=== PATIENT | male | born 1980 | race Caucasian/White ===

== ENCOUNTER 2019-10-12 11:17 | Emergency (ER) | payer BC ==
[2019-10-12] MEDS ORDERED: Adenosine 12 MG/4 ML SDV ONE (11:34)
[2019-10-12] MEDS ORDERED: Adenosine 6 MG/2 ML SDV ONE (11:34)
[2019-10-12] MEDS ORDERED: Sodium Chloride 0.9% 10 ML Syringe FLUSH PRN (11:39)
[2019-10-12] MEDS ORDERED: Adenosine 6 MG/2 ML SDV IVPUSH ONE (11:40)
[2019-10-12] MEDS ORDERED: Sodium Chloride 0.9% 1,000 ML IV SCH (11:45)
--- NOTE | 2019-10-12 12:15 | EDM.PDOC ---
ED HPI GENERAL MEDICAL PROBLEM - General Chief Complaint: Cardiovascular Problem Stated Complaint: RAPID HEART RATE, BURNING IN L ARM SOME CHEST PAIN Time Seen by Provider: 10/12/19 11:29 Source of Information: Reports: Patient History Limitations: Reports: No Limitations - History of Present Illness INITIAL COMMENTS - FREE TEXT/NARRATIVE: The patient presents with palpitations. He also has some burning down his left arm. He also has a little chest pressure. He says he had this happen a few times before. They offered to do ablation but it only happened a couple of times. He did not do anything abnormal the past couple of days. He has not been ill. He has no fever, chills, cough, congestion, runny nose, or shortness of breath. He has no abdominal pain, nausea or vomiting. He has no swelling or pain in his legs. Onset: Sudden Duration: Hour(s): Location: Reports: Chest Quality: Reports: Pressure Severity: Mild Improves with: Reports: None Worsens with: Reports: None Associated Symptoms: Reports: Chest Pain. Denies: Cough, Fever/Chills, Headaches, Nausea/Vomiting, Shortness of Breath - Related Data Allergies Allergy/AdvReac Type Severity Reaction Status Date / Time No Known Allergies Allergy Verified 10/12/19 11:38 Home Meds: Home Meds . [No Known Home Meds] 10/12/19 [History] Past Medical History Cardiovascular History: Reports: Arrhythmia Other Cardiovascular History: last episode about 2 years ago Social & Family History - Family History Family Medical History: Noncontributory - Tobacco Use Smoking Status *Q: Current Every Day Smoker Years of Tobacco use: 15 Packs/Tins Daily: 0.3 - Caffeine Use Caffeine Use: Reports: Tea - Recreational Drug Use Recreational Drug Use: No ED ROS GENERAL - Review of Systems Review Of Systems: See Below Constitutional: Reports: No Symptoms HEENT: Reports: No Symptoms Respiratory: Reports: No Symptoms Cardiovascular: Reports: Chest Pain, Palpitations Endocrine: Reports: No Symptoms GI/Abdominal: Reports: No Symptoms : Reports: No Symptoms ED EXAM, GENERAL - Physical Exam Exam: See Below Exam Limited By: No Limitations General Appearance: Alert, No Apparent Distress Ears: Normal External Exam Nose: Normal Inspection Head: Atraumatic, Normocephalic Neck: Normal Inspection Respiratory/Chest: No Respiratory Distress, Lungs Clear, Normal Breath Sounds Cardiovascular: No Edema, No Murmur, Tachycardia GI/Abdominal: Soft, Non-Tender, No Organomegaly, No Mass Back Exam: Normal Inspection Extremities: Normal Inspection Neurological: Alert, Oriented, No Motor/Sensory Deficits EKG INTERPRETATION EKG Date: 10/12/19 Time: 11:36 Rhythm: Other (Sinus tachycardia) Rate (Beats/Min): 107 [place]: Normal P-Wave: Present QRS: Normal ST-T: Normal QT: Normal Course - Vital Signs Last Recorded V/S: Last Vital Signs Temp 97.8 F 10/12/19 11:30 Pulse 193 H 10/12/19 11:30 Resp 20 10/12/19 11:30 BP 144/104 H 10/12/19 11:30 Pulse Ox 96 10/12/19 11:30 - Orders/Labs/Meds Orders: Active Orders 24 hr Category Date Time Status Cardiac Monitoring [RC] . DIRECTED Care 10/12/19 11:39 Active EKG Documentation Completion [RC] STAT Care 10/12/19 11:39 Active Peripheral IV Care [RC] . DIRECTED Care 10/12/19 11:39 Active Chest 2V [CR] Stat Exams 10/12/19 11:39 Taken Sodium Chloride 0.9% [Normal Saline] 1,000 ml Med 10/12/19 11:45 Active IV .BOLUS Sodium Chloride 0.9% [Saline Flush] Med 10/12/19 11:39 Active 10 ml FLUSH ASDIRECTED PRN Peripheral IV Insertion Adult [OM.PC] Stat Oth 10/12/19 11:39 Ordered Medication Orders Sodium Chloride (Normal Saline) 1,000 mls @ 1,000 mls/hr IV .BOLUS DILEEP Last Admin: 10/12/19 11:51 Dose: 1,000 mls/hr Sodium Chloride (Saline Flush) 10 ml FLUSH ASDIRECTED PRN PRN Reason: Keep Vein Open Last Admin: 10/12/19 11:52 Dose: 10 ml Labs: Laboratory Tests 10/12/19 10/12/19 10/12/19 Range/Units 11:35 11:35 11:35 WBC 11.81 H (4.23-9.07) K/mm3 RBC 5.72 (4.63-6.08) M/mm3 Hgb 17.3 (13.7-17.5) gm/dl Hct 51.1 H (40.1-51.0) % MCV 89.3 (79.0-92.2) fl MCH 30.2 (25.7-32.2) pg MCHC 33.9 (32.2-35.5) g/dl RDW Std Deviation 45.1 H (35.1-43.9) fL Plt Count 259 (163-337) K/mm3 MPV 10.6 (9.4-12.3) fl Neut % (Auto) 60.6 (34.0-67.9) % Lymph % (Auto) 26.0 (21.8-53.1) % [place] % (Auto) 10.9 (5.3-12.2) % Eos % (Auto) 1.4 (0.8-7.0) Baso % (Auto) 0.8 (0.1-1.2) % Neut # (Auto) 7.15 H (1.78-5.38) K/mm3 Lymph # (Auto) 3.07 (1.32-3.57) K/mm3 [place] # (Auto) 1.29 H (0.30-0.82) K/mm3 Eos # (Auto) 0.17 (0.04-0.54) K/mm3 Baso # (Auto) 0.10 H (0.01-0.08) K/mm3 Manual Slide Review Normal smear Sodium 142 (136-145) mEq/L Potassium 4.1 (3.5-5.1) mEq/L Chloride 105 (98-107) mEq/L Carbon Dioxide 28 (21-32) mEq/L Anion Gap 13.1 (5-15) BUN 14 (7-18) mg/dL Creatinine 1.3 (0.7-1.3) mg/dL Est Cr Clr Drug Dosing 86.22 mL/min Estimated GFR (MDRD) > 60 (>60) mL/min BUN/Creatinine Ratio 10.8 L (14-18) Glucose 203 H (74-106) mg/dL Calcium 8.8 (8.5-10.1) mg/dL Total Bilirubin 0.6 (0.2-1.0) mg/dL AST 57 H (15-37) U/L ALT 137 H (16-63) U/L Alkaline Phosphatase 115 (46-116) U/L Troponin I < 0.017 (0.00-0.056) ng/mL Total Protein 7.6 (6.4-8.2) g/dl Albumin 3.8 (3.4-5.0) g/dl Globulin 3.8 gm/dL Albumin/Globulin Ratio 1.0 (1-2) TSH 3rd Generation 1.807 (0.358-3.74) uIU/mL Meds: Medications Generic Name Dose Route Start Last Admin Trade Name Freq PRN Reason Stop Dose Admin Sodium Chloride 1,000 mls @ 1,000 mls/hr 10/12/19 11:45 10/12/19 11:51 Normal Saline IV 1,000 mls/hr .BOLUS DILEEP Administration Sodium Chloride 10 ml 10/12/19 11:39 10/12/19 11:52 Saline Flush FLUSH 10 ml ASDIRECTED PRN Administration Keep Vein Open Discontinued Medications Generic Name Dose Route Start Last Admin Trade Name Freq PRN Reason Stop Dose Admin Adenosine Confirm 10/12/19 11:34 10/12/19 11:43 Adenocard Administered 10/12/19 11:35 Not Given Dose 6 mg .ROUTE .STK-MED ONE Adenosine Confirm 10/12/19 11:34 10/12/19 11:43 Adenocard Administered 10/12/19 11:35 Not Given Dose 12 mg .ROUTE .STK-MED ONE Adenosine 6 mg 10/12/19 11:40 10/12/19 11:36 Adenocard IVPUSH 10/12/19 11:41 6 mg NOW ONE Administration - Re-Assessments/Exams Free Text/Narrative Re-Assessment/Exam: 10/12/19 12:44 The monitor showed he was in SVT at a rate in the 190s. I tried vagal maneuvers but that did not help. He did try them at home also. I then ordered an IV NS 1L bolus, adenosine 6mg IV, labs, CXR and EKG. The adenosine did convert him. His EKG shows a NSR with no acute changes. His CXR looks good. His CBC and CMP look good. His troponin and TSH are normal. Departure - Departure Time of Disposition: 12:50 Disposition: Home, Self-Care 01 Condition: Good Clinical Impression: Paroxysmal supraventricular tachycardia Referrals: PCP,None [Primary Care Provider] - Manoj Eugene MD [Physician] - 1 Week Forms: ED Department Discharge Additional Instructions: Drink plenty of fluids. Follow up with Dr Eugene within a week or two. Please return if you are worse. - My Orders Last 24 Hours: My Active Orders 10/12/19 11:39 Cardiac Monitoring [RC] . DIRECTED EKG Documentation Completion [RC] STAT Peripheral IV Care [RC] . DIRECTED Chest 2V [CR] Stat Sodium Chloride 0.9% [Saline Flush] 10 ml FLUSH ASDIRECTED PRN Peripheral IV Insertion Adult [OM.PC] Stat 10/12/19 11:45 Sodium Chloride 0.9% [Normal Saline] 1,000 ml IV .BOLUS - Assessment/Plan Last 24 Hours: My Active Orders 10/12/19 11:39 Cardiac Monitoring [RC] . DIRECTED EKG Documentation Completion [RC] STAT Peripheral IV Care [RC] . DIRECTED Chest 2V [CR] Stat Sodium Chloride 0.9% [Saline Flush] 10 ml FLUSH ASDIRECTED PRN Peripheral IV Insertion Adult [OM.PC] Stat 10/12/19 11:45 Sodium Chloride 0.9% [Normal Saline] 1,000 ml IV .BOLUS
--- NOTE | 2019-10-12 14:01 | CR ---
Chest: Two views of the chest were obtained. Comparison: No prior chest x-ray. Heart size and mediastinum are normal. Lungs are clear. Bony structures are unremarkable. Impression: 1. Nothing acute is seen on two-view chest x-ray. Diagnostic code #1
== END 2019-10-12 13:04 | disposition home or self-care (01) ==
LOC: JD.ED 11:17
DX: I47.1 Supraventricular tachycardia (principal); F17.210 Nicotine dependence, cigarettes, uncomplicated
CPT/HCPCS: 36415; 71046; 80053; 84443; 84484; 85025; 93005; 96361; 96374; 99285; J0153; J7040; 93010; 99284

== ENCOUNTER 2019-12-25 15:28 | Emergency (ER) | payer BC, MEDICAID ==
[2019-12-25] MEDS ORDERED: Adenosine 6 MG/2 ML SDV IVPUSH ONE ×2 (15:43→15:44)
[2019-12-25] MEDS ORDERED: Sodium Chloride 0.9% 1,000 ML IV ONE ×2 (15:43→15:55)
[2019-12-25] MEDS ORDERED: Sodium Chloride 0.9% 1,000 ML ONE (15:45)
[2019-12-25] MEDS ORDERED: Metoclopramide 10 MG/2 ML SDV IVPUSH ONE (15:56)
[2019-12-25] MEDS ORDERED: HYDROmorphone 1 MG/ML Syringe IVPUSH ONE ×2 (15:56→17:57)
--- NOTE | 2019-12-25 16:11 | EDM.PDOC ---
ED HPI GENERAL MEDICAL PROBLEM - General Chief Complaint: Back Pain or Injury Stated Complaint: BACK PAIN Time Seen by Provider: 12/25/19 15:34 Source of Information: Reports: Patient History Limitations: Reports: No Limitations - History of Present Illness INITIAL COMMENTS - FREE TEXT/NARRATIVE: 39-year-old male presents to the ED primarily because of an increase in low back pain with loss of bladder control earlier this morning. He states he is known to have severe degenerative disc disease from lumbar 2 to lumbar 5. He has increased weakness in his left leg with frequent stumbling due to mild left foot drop. He doesn't take anything for the pain is nothing really helps. He had steroid injections in his back done in [place] a couple of months ago with no real improvement. He is a large fellow weighs about 330 pounds. The nurses identify that his heart was racing in the 140s when they did his vital signs. Patient has a history of recurrent SVT he estimates at least 5 or 6 times in the past has required Adenocard. He isn't aware of any palpitations in his chest. He is aware of some mild sweats and lightheadedness. Doesn't really feel short of breath and has no chest pain. He rarely drinks alcohol. takes no medications at present and does not smoke cigarettes. Onset: Today (Today's the first time that he's ever lost control of his bladder. ) Onset Date: 12/25/19 (Jaja low back pain for greater than 5 years) Duration: Chronic, Getting Worse Location: Reports: Back (Chronic low back pain with lower extremity weakness worse on the left than on the right.) Quality: Reports: Ache, Throbbing Severity: Severe (8 out of 10) Improves with: Reports: Rest Worsens with: Reports: Movement Context: Reports: Other (Chronic low back pain just getting worse.). Denies: Activity, Exercise (Particularly standing and walking), Lifting, Sick Contact, Trauma Associated Symptoms: Reports: Diaphoresis, Loss of Appetite, Malaise, Weakness ( Lightheadedness and dizziness is in both lower extremities worse in the left leg and on the right.), Other. Denies: Confusion, Chest Pain, Cough, cough w sputum, Fever/Chills, Headaches, Nausea/Vomiting, Rash, Seizure, Shortness of Breath, Syncope Treatments REGULATORY AFFAIRS SPEC: Reports: Other (see below) Back Pain Score (Numeric/FACES): 4 - Related Data Allergies Allergy/AdvReac Type Severity Reaction Status Date / Time No Known Allergies Allergy Verified 12/25/19 15:43 Home Meds: Home Meds Naproxen Sodium [Aleve] 440 mg PO Q8H PRN #60 tablet 12/25/19 [Rx] Oseltamivir [Tamiflu] 75 mg PO BID #10 cap 12/25/19 [Rx] oxyCODONE HCl/Acetaminophen [Percocet 10-325 mg Tablet] 1 - 2 each PO Q4H PRN # 36 tablet 12/25/19 [Rx] predniSONE [Prednisone] 20 mg PO ASDIRECTED #18 tablet 12/25/19 [Rx] Past Medical History Cardiovascular History: Reports: Arrhythmia Other Cardiovascular History: last episode about 2 years ago, SVT. He believes he has had to have Adenocard on 5 occasions for SVT in the past. Musculoskeletal History: Reports: Back Pain, Chronic (Due to severe degenerative disc disease.) - Past Surgical History Musculoskeletal Surgical History: Reports: Arthroscopic Knee Social & Family History - Family History Family Medical History: Noncontributory - Tobacco Use Smoking Status *Q: Current Every Day Smoker Years of Tobacco use: 15 Packs/Tins Daily: 0.5 - Caffeine Use Caffeine Use: Reports: Tea - Recreational Drug Use Recreational Drug Use: No - Living Situation & Occupation Living situation: Reports: Occupation: Employed ED ROS GENERAL - Review of Systems Review Of Systems: See Below Constitutional: Reports: Malaise, Weakness, Fatigue, Diaphoresis, Decreased Appetite, Other (Lightheaded and dizzy.). Denies: Fever, Chills HEENT: Reports: No Symptoms Respiratory: Reports: Shortness of Breath. Denies: Wheezing, Pleuritic Chest Pain, Cough, Sputum, Hemoptysis Cardiovascular: Reports: Blood Pressure Problem (Pulleys been borderline hypertensive in the past.), Dyspnea on Exertion, Lightheadedness. Denies: Edema , Orthopnea, Palpitations Endocrine: Reports: Fatigue GI/Abdominal: Reports: No Symptoms : Reports: Frequency Musculoskeletal: Reports: Back Pain (Jaja low back pain with radiculopathy into both lower extremities. Increased weakness left lower extremity as compared to the right with mild left foot drop.) Skin: Reports: No Symptoms Neurological: Reports: Paresthesia Psychiatric: Reports: No Symptoms (In both lower extremities. They feel numb and tingly most the time) Hematologic/Lymphatic: Reports: No Symptoms Immunologic: Reports: No Symptoms ED EXAM,LOWER BACK PAIN/INJURY - Physical Exam Exam: See Below Exam Limited By: No Limitations General Appearance: Alert, WD/WN, Mild Distress, Other (Temperatures 37.8. Heart rate was in the 140s and appeared to be primarily sinus with some ectopic P waves. Was questionable whether he was in atrial flutter fib. 20 with O2 sats of 95% on room air BP 150/86.) Eye Exam: Bilateral Eye: Normal Inspection, PERRL Throat/Mouth: Normal Inspection, Normal Lips, Normal Oropharynx Head: Atraumatic, Normocephalic Neck: Normal Inspection, Supple, Non-Tender, Full Range of Motion. No: Lymphadenopathy (L), Lymphadenopathy (R) Respiratory/Chest: No Respiratory Distress, Lungs Clear, Normal Breath Sounds, No Accessory Muscle Use Cardiovascular: No Edema, No Gallop, No Murmur, No Rub, Tachycardia (Complex tachycardia). No: Normal Peripheral Pulses, Regular Rate, Rhythm GI/Abdominal: Normal Bowel Sounds, Soft, Non-Tender, No Organomegaly, Other ( Moderately obese. His abdominal girth limits ability to palpate solid organs.) Back Exam: Decreased Range of Motion, Paraspinal Tenderness. No: Muscle Spasm Extremities: Normal Inspection (Bilaterally. Deep palpation only.), Normal Range of Motion, Non-Tender, No Pedal Edema Neurological: Alert, CN II-XII Intact, Oriented x 3. No: Normal Reflexes, No Motor/Sensory Deficits DTR - Lower Extremities: 0: Ankle (R), Ankle (L), 2+: Knee (R), Knee (L) Psychiatric: Anxious Skin Exam: Warm, Dry, Intact, Normal Color, No Rash EKG INTERPRETATION EKG Date: 12/25/19 Time: 15:49 Rhythm: Other (Sinus tachycardia) Rate (Beats/Min): 135 [place]: Normal P-Wave: Present QRS: Other (There is early R-wave transition consider right ventricular hypertrophy versus septal hypertrophy pattern. Creased voltage in the limb leads.) ST-T: Normal QT: Normal EKG Interpretation Comments: Abnormal ECG Course - Vital Signs Last Recorded V/S: Last Vital Signs Temp 38.1 C 12/25/19 20:11 Pulse 115 H 12/25/19 18:34 Resp 28 H 12/25/19 18:34 BP 149/78 H 12/25/19 18:34 Pulse Ox 95 12/25/19 18:34 - Orders/Labs/Meds Orders: Active Orders 24 hr Category Date Time Status Dextrose 5%-Lactated Ringers 1,000 ml Med 12/25/19 18:15 Active IV ASDIRECTED Medication Orders Dextrose/Lactated Ringer's (Dextrose 5%-Lactated Ringers) 1,000 mls @ 999 mls/ hr IV ASDIRECTED DILEEP Last Admin: 12/25/19 18:22 Dose: 999 mls/hr Labs: Laboratory Tests 12/25/19 12/25/19 12/25/19 Range/Units 15:43 15:43 15:43 WBC 8.35 (4.23-9.07) K/mm3 RBC 5.54 (4.63-6.08) M/mm3 Hgb 16.7 (13.7-17.5) gm/dl Hct 50.1 (40.1-51.0) % MCV 90.4 (79.0-92.2) fl MCH 30.1 (25.7-32.2) pg MCHC 33.3 (32.2-35.5) g/dl RDW Std Deviation 44.0 H (35.1-43.9) fL Plt Count 212 (163-337) K/mm3 MPV 10.9 (9.4-12.3) fl Neut % (Auto) 75.4 H (34.0-67.9) % Lymph % (Auto) 5.6 L (21.8-53.1) % [place] % (Auto) 16.6 H (5.3-12.2) % Eos % (Auto) 1.2 (0.8-7.0) Baso % (Auto) 0.8 (0.1-1.2) % Neut # (Auto) 6.29 H (1.78-5.38) K/mm3 Lymph # (Auto) 0.47 L (1.32-3.57) K/mm3 [place] # (Auto) 1.39 H (0.30-0.82) K/mm3 Eos # (Auto) 0.10 (0.04-0.54) K/mm3 Baso # (Auto) 0.07 (0.01-0.08) K/mm3 Manual Slide Review Normal smear Sodium 137 (136-145) mEq/L Potassium 4.2 (3.5-5.1) mEq/L Chloride 100 (98-107) mEq/L Carbon Dioxide 28 (21-32) mEq/L Anion Gap 13.2 (5-15) BUN 10 (7-18) mg/dL Creatinine 1.4 H (0.7-1.3) mg/dL Est Cr Clr Drug Dosing 79.29 mL/min Estimated GFR (MDRD) 57 (>60) mL/min BUN/Creatinine Ratio 7.1 L (14-18) Glucose 122 H (74-106) mg/dL Calcium 8.8 (8.5-10.1) mg/dL Magnesium 1.7 L (1.8-2.4) mg/dl Total Bilirubin 0.4 (0.2-1.0) mg/dL AST 67 H (15-37) U/L ALT 165 H (16-63) U/L Alkaline Phosphatase 120 H (46-116) U/L Troponin I < 0.017 (0.00-0.056) ng/mL NT-Pro-B Natriuret Pep 49 (0-125) pg/mL Total Protein 7.9 (6.4-8.2) g/dl Albumin 4.0 (3.4-5.0) g/dl Globulin 3.9 gm/dL Albumin/Globulin Ratio 1.0 (1-2) Meds: Medications Generic Name Dose Route Start Last Admin Trade Name Freq PRN Reason Stop Dose Admin Dextrose/Lactated Ringer's 1,000 mls @ 999 mls/hr 12/25/19 18:15 12/25/19 18: 22 Dextrose 5%-Lactated Ringers IV 999 mls/hr ASDIRECTED DILEEP Administration Discontinued Medications Generic Name Dose Route Start Last Admin Trade Name Freq PRN Reason Stop Dose Admin Adenosine 6 mg 12/25/19 15:43 12/25/19 15:52 Adenocard IVPUSH 12/25/19 15:44 6 mg NOW ONE Administration Adenosine 12 mg 12/25/19 15:44 12/25/19 16:11 Adenocard IVPUSH 12/25/19 15:45 Not Given NOW ONE Gadobenate Dimeglumine 20 ml 12/25/19 17:04 12/25/19 17:34 Multihance IVPUSH 12/25/19 17:05 20 ml ONETIME ONE Administration Hydromorphone HCl 1 mg 12/25/19 15:56 12/25/19 16:03 Dilaudid IVPUSH 12/25/19 15:57 1 mg ONETIME ONE Administration Hydromorphone HCl 1 mg 12/25/19 17:57 12/25/19 18:30 Dilaudid IVPUSH 12/25/19 17:58 1 mg ONETIME ONE Administration Sodium Chloride 1,000 mls @ 999 mls/hr 12/25/19 15:43 12/25/19 15:56 Normal Saline IV 12/25/19 16:43 999 mls/hr ONETIME ONE Administration Sodium Chloride Confirm 12/25/19 15:45 12/25/19 15:56 Normal Saline Administered 12/25/19 15:46 Not Given Dose 1,000 mls @ as directed .ROUTE .STK-MED ONE Sodium Chloride 1,000 mls @ 999 mls/hr 12/25/19 15:55 12/25/19 16:11 Normal Saline IV 12/25/19 16:55 Not Given ONETIME ONE Ibuprofen Confirm 12/25/19 18:37 12/25/19 18:39 Motrin Administered 12/25/19 18:38 Not Given Dose 800 mg .ROUTE .STK-MED ONE Ibuprofen 800 mg 12/25/19 18:41 12/25/19 18:43 Motrin PO 12/25/19 18:42 800 mg ONETIME ONE Administration Methylprednisolone Sodium Succinate 125 mg 12/25/19 18:03 12/25/19 18:23 Solu-Medrol IVPUSH 12/25/19 18:04 125 mg ONETIME ONE Administration Metoclopramide HCl 10 mg 12/25/19 15:56 12/25/19 16:01 Reglan IVPUSH 12/25/19 15:57 10 mg ONETIME ONE Administration Sodium Chloride 10 ml 12/25/19 17:03 12/25/19 17:35 Saline Flush FLUSH 12/25/19 17:04 10 ml ONETIME ONE Administration - Radiology Interpretation Free Text/Narrative:: 39-year-old male presents to the ED primarily due to exacerbation of low back pain with loss of bladder control this morning. He states he made it to the toilet and ended up finishing emptying his bladder and then had a bowel movement. He has been having increased left lower extremity weakness. He knows he has chronic degenerative disc disease in his back from previous MRIs. He lives with chronic low back pain. He takes no medication. Second problem identified was a narrow complex tachycardia which had the initial appearance of SVT in the 148 range. There appeared to be the occasional ectopic atrial beat and I could not be sure that wasn't atrial fibrillation. However didn't occur and 6 mg given IV slowed him down to about 1 29/m and it revealed sinus tachycardia. Patient will have routine lab work performed. Given Reglan 10 mg IV and 1 mg of Dilaudid IV for pain relief. Of MRI of his lumbar spine without contrast at this time. He'll receive normal saline at open. He hasn't had very much to eat or drink in the last 24 hours which may explain his sinus tachycardia in combination with the pain that he is having. - Re-Assessments/Exams Free Text/Narrative Re-Assessment/Exam: 12/25/19 17:31 White count is normal at 8.35 with slightly elevated differential at 75.4% by the auto differential. Hemoglobin is 16.7 with hematocrit hematocrit of 50.1 suggesting mild hemoconcentration. Count is 212, 000. No band cells are identified. Sodium is 137 with potassium of 4.2. Chloride 100 with a bicarbonate 28. Anion gap is 13.2. BUN is 10 and creatinine is mildly elevated at 1.4. GFR is 57 glucose is 122. Calcium is 8.8. Magnesium is slightly low at 1.7. Bilirubin is 0.4. AST is elevated at 67 and ALT is elevated to 165. Alk phosphatase is 120. Troponin I is less than 0.017. BNP is 49. Total protein is 7.9 with albumin fraction of 4.0 12/25/19 17:58 MRI of the lumbar spine has been completed. Findings at the T12- L1 level. Posterior disc is preserved. No central canal stenosis or neural foraminal stenosis appreciated. At L1-L2 posterior disc is preserved. No central canal stenosis or neural foraminal stenosis seen. At L2-L3 posterior disc is preserved. No central canal stenosis or neural foraminal stenosis noted. At L3-L4 level mild circumferential disc bulge is seen with slight asymmetric disc bulge posteriorly to the midline. Small annular tear is appreciated. No central canal stenosis or neural foraminal stenosis is seen. At the L4-L5 level focal disc protrusion is seen posteriorly to the midline slightly to the right of the midline which indents the anterior thecal sac. This does not appear to cause any nerve root compression. No central canal stenosis or neural foraminal stenosis is is seen. At the L5-S1 level small focal disc protrusion is seen to the right of midline this does not appear to cause any nerve root compression. No central canal stenosis or neural foraminal stenosis is appreciated. No abnormal enhancement is seen within the conus medullaris or cauda equina. Discussed the above findings with the patient and indicate that he does not need any emergency surgery. Patient is having more pain will be given Dilaudid 1 mg IV. I will also provide him with Solu-Medrol 125 mg IV. 12/25/19 18:15 patient will be given another liter of IV fluids since remains tachycardic at 1 20/m and a BP of 132/81. His lab work suggest that he is hemoconcentrated. Creatinine was 1.4. 12/25/19 19:00 patient spiked a fever about 103.2. This is the reason for his persistent tachycardia. Influenza screen will be obtained. If this is negative will pursue septic workup. 12/25/19 19:27 influenza screen came back positive for the type a virus. She' ll be treated with Tamiflu 75 mg twice a day for the next 5 days. He is instructed to be away from the work place for the next week due to being infective to others. Departure - Departure Time of Disposition: 20:33 Disposition: Home, Self-Care 01 Condition: Fair Clinical Impression: Acute febrile illness, Influenza A, Back pain of lumbar region with sciatica - Discharge Information *PRESCRIPTION DRUG MONITORING PROGRAM REVIEWED*: Not Applicable *COPY OF PRESCRIPTION DRUG MONITORING REPORT IN PATIENT STACY: Not Applicable Prescriptions: Naproxen Sodium [Aleve] 440 mg PO Q8H PRN #60 tablet PRN Reason: Low back pain Oseltamivir [Tamiflu] 75 mg PO BID #10 cap oxyCODONE HCl/Acetaminophen [Percocet 10-325 mg Tablet] 1 - 2 each PO Q4H PRN # 36 tablet PRN Reason: Severe lumbar back pain predniSONE [Prednisone] 20 mg PO ASDIRECTED #18 tablet Instructions: Influenza, Adult, [id number], Sciatica Referrals: PCP,None [Primary Care Provider] - Forms: ED Department Discharge, ED Return to Work/School Form Additional Instructions: Evaluation in the emergency room today primarily due to a marked increase in low back pain with loss of bladder control this morning. Streaky you have chronic low back pain due to multiple disc herniations with steroids in [place] did not relieve your pain. MRI of your lower back was carried out and reveals disc protrusion at lumbar 4-L5 level and L5-S1 levels more to the right side than on the left side. There is no spinal cord or nerve root compression however. Second problem identified was an elevated heart rate into the 140s with a history of SVT. You're given 6 mg of the data card which lowered her heart rate down to 129 but it showed that the rhythm was primarily sinus tachycardia not SVT today. Cause of the sinus tachycardia which means heart is going faster than normal is fever which proved to be due to influenza type a viral infection and mild dehydration. You're given 2 L of IV fluids while in the ED. You're given pain medication Dilaudid 1 mg IV 2 doses. He will given initial dose of Solu-Medrol 125 mg IV as well to relieve pain and inflammation in your lower back. Treatment at home is to be plenty of rest. Try and take in as much fluids as possible particularly things like Gatorade or Powerade which are similar to IV fluids. The influenza virus causes generalized body aches, headache and severe paroxysmal cough which is usually not very productive complete loss of appetite. He will need to take antiviral medication Tamiflu 75 mg twice daily starting tonight and take this twice daily for the next 5 days to clear this infection up. Provided a prescription for Percocet 10/325 mg tabs one or 2 tablets every 4-6 hours as needed for relief of cough and severe low back pain. Suggest taking Aleve 2 tablets every 8 hours to relieve inflammation in the muscles as well as relief of fever and headache.Start anti inflammatory Prednisone 20mg with breakfast and supper for 6 days tomorrow morning and then after that take 1 tablet in the morning for another 6 days. Is to reduce inflammation in your lower back. Will need to be off work for the next week as you're considered contagious to other people in the workplace to coughing. A note was provided in this regard. Return to the ED if any further problems occur. Sepsis Event Note - Evaluation Sepsis Screening Result: No Definite Risk - Focused Exam Vital Signs: Vital Signs Temp Temp Pulse Resp BP Pulse Ox 12/25/19 20:11 38.1 C 12/25/19 19:43 38.1 C 12/25/19 18:43 39.7 C H 12/25/19 18:34 39.7 C H 115 H 28 H 149/78 H 95 12/25/19 15:34 37.8 C 137 H 20 150/86 H 95 Date Exam was Performed: 12/25/19 Time Exam was Performed: 20:33 - My Orders Last 24 Hours: My Active Orders 12/25/19 18:15 Dextrose 5%-Lactated Ringers 1,000 ml IV ASDIRECTED - Assessment/Plan Last 24 Hours: My Active Orders 12/25/19 18:15 Dextrose 5%-Lactated Ringers 1,000 ml IV ASDIRECTED
[2019-12-25] MEDS ORDERED: Sodium Chloride 0.9% 10 ML Syringe FLUSH ONE (17:03)
[2019-12-25] MEDS ORDERED: Gadobenate Dimeglumine 529 MG/ML 20 ML SDV IVPUSH ONE (17:04)
--- NOTE | 2019-12-25 17:43 | MR ---
MRI lumbar spine Technique: T2, T1 and T1 fat-suppressed post-contrast axial images were obtained from above T12-L1 disc through the L5-S1 discs. T1, T2, fat suppressed inversion recovery and T1 fat-suppressed postcontrast sagittal images were obtained. Findings: T12-L1: Posterior disc is preserved. No central canal stenosis or neural foraminal stenosis is seen. L1-L2: Posterior disc is preserved. No central canal stenosis or neural foraminal stenosis is seen. L2-L3: Posterior disc is preserved. No central canal stenosis or neural foraminal stenosis is seen. L3-L4: Mild circumferential disc bulge is seen with slight asymmetric disc bulge posteriorly to the midline. Small annular tear is noted. No central canal stenosis or neural foraminal stenosis is seen. L4-L5: Focal disc protrusion is seen posteriorly to the midline slightly to the right of midline which indents the anterior thecal sac. This does not appear to cause any nerve root compression. No central canal stenosis or neural foraminal stenosis is seen. L5-S1: Small focal disc protrusion is seen to the right of midline. This does not appear to cause any nerve root compression. No central canal stenosis or neural foraminal stenosis is seen. No abnormal enhancement is seen within the conus medullaris or cauda equina. No abnormal signal is seen within the conus medullaris or cauda equina. Impression: 1. Mild degenerative disc change as noted above. 2. No additional abnormality is appreciated on MRI study of the lumbar spine Diagnostic code #2 Study was dictated in [place] Standard Time
[2019-12-25] MEDS ORDERED: methylPREDNISolone Sodium Succinate 125 MG/2 ML SDV IVPUSH ONE (18:03)
[2019-12-25] MEDS ORDERED: Dextrose 5%-Lactated Ringers 1,000 ML IV SCH (18:15)
[2019-12-25] MEDS ORDERED: Ibuprofen 800 MG Tab ONE (18:37)
[2019-12-25] MEDS ORDERED: Ibuprofen 800 MG Tab PO ONE (18:41)
== END 2019-12-25 20:54 | disposition home or self-care (01) ==
LOC: JD.ED 15:28
DX: M54.42 Lumbago with sciatica, left side (principal); J10.1 Influenza due to other identified influenza virus with other respiratory manifestations; F17.210 Nicotine dependence, cigarettes, uncomplicated
CPT/HCPCS: 36415; 72158; 80053; 83735; 83880; 84484; 85025; 87804; 96361; 96374; 96375; 99284; A9270; A9577; J0153; J1170; J2765; J2930; J7030; J7121; 93010

== ENCOUNTER 2020-01-14 21:05 | Emergency (ER) | payer MEDICAID ==
[2020-01-14] MEDS ORDERED: Sodium Chloride 0.9% 1,000 ML IV SCH (21:30)
[2020-01-14] MEDS ORDERED: Metoclopramide 10 MG/2 ML SDV IVPUSH ONE (21:31)
[2020-01-14] MEDS ORDERED: HYDROmorphone 1 MG/ML Syringe IVPUSH ONE ×2 (21:31→21:58)
--- NOTE | 2020-01-14 21:36 | EDM.PDOC ---
ED HPI GENERAL MEDICAL PROBLEM - General Chief Complaint: Abdominal Pain Stated Complaint: LEFT SIDE ABDOMINAL PAIN Time Seen by Provider: 01/14/20 21:25 Source of Information: Reports: Patient History Limitations: Reports: No Limitations - History of Present Illness INITIAL COMMENTS - FREE TEXT/NARRATIVE: 39-year-old male presents to the ED with acute onset of severe left mid lower abdominal pain associated with nausea and vomiting 3. Charted suddenly about an hour prior to arrival in the ED. He had eaten supper which he has vomited up. There was no hematemesis. Pain is described as being severe, 10 out of 10 and constant with a colicky component. He does appreciate a feeling of need to void but not defecate. Problems have been otherwise normal. He has no history of kidney stones. He is diaphoretic and kneeling at the bedside upon arrival in the examination room with an emesis bag. No previous abdominal surgeries. Onset: Today, Sudden Onset Date: 01/14/20 Onset Time: 20:05 Duration: Hour(s): (One hour) Location: Reports: Abdomen (Acute onset of severe left mid lower abdominal pain with no radiation to the testicle or flank.) Quality: Reports: Other Severity: Severe (Anus described as 10 on a 10 a deep aching pain with intermittent sharp colicky pain) Improves with: Reports: None Worsens with: Reports: None Context: Reports: Other (Spontaneous onset a good hour before coming to the ED.) . Denies: Activity, Exercise, Lifting, Sick Contact, Trauma Associated Symptoms: Reports: Nausea/Vomiting (Nausea and vomiting 3 of recently eaten supper and bilious material. 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) (None.) Left Abdomen Pain Score (Numeric/FACES): 10 - Related Data Allergies Allergy/AdvReac Type Severity Reaction Status Date / Time No Known Allergies Allergy Verified 01/14/20 21:13 Home Meds: Home Meds Naproxen Sodium [Aleve] 440 mg PO Q8H PRN #60 tablet 12/25/19 [Rx] Oseltamivir [Tamiflu] 75 mg PO BID #10 cap 12/25/19 [Rx] oxyCODONE HCl/Acetaminophen [Percocet 10-325 mg Tablet] 1 - 2 each PO Q4H PRN # 36 tablet 12/25/19 [Rx] predniSONE [Prednisone] 20 mg PO ASDIRECTED #18 tablet 12/25/19 [Rx] Ondansetron [Zofran] 4 mg BUCCAL Q6H PRN #5 tab 01/14/20 [Rx] oxyCODONE HCl/Acetaminophen [Percocet 5-325 mg Tablet] 1 - 2 each PO Q4H PRN # 18 tablet 01/14/20 [Rx] Past Medical History Cardiovascular History: Reports: Arrhythmia Other Cardiovascular History: last episode about 2 years ago, SVT. He believes he has had to have Adenocard on 5 occasions for SVT in the past. Respiratory History: Reports: Other (See Below) (Patient was diagnosed with influenza December 25 and is just starting to get better. He'll has a mild cough) Musculoskeletal History: Reports: Back Pain, Chronic - Past Surgical History Musculoskeletal Surgical History: Reports: Arthroscopic Knee Social & Family History - Family History Family Medical History: Noncontributory - Tobacco Use Smoking Status *Q: Never Smoker - Caffeine Use Caffeine Use: Reports: None - Recreational Drug Use Recreational Drug Use: No - Living Situation & Occupation Living situation: Reports: Occupation: Employed ED ROS GENERAL - Review of Systems Review Of Systems: See Below Constitutional: Reports: Diaphoresis. Denies: Fever, Chills, Malaise, Weakness , Fatigue, Decreased Appetite, Weight Loss HEENT: Reports: No Symptoms (Severe diaphoresis), Other (Persistent hoarseness since he was coughing so hard influenza a the end of December. He is a nonsmoker. ) Respiratory: Reports: Cough Cardiovascular: Reports: No Symptoms Endocrine: Reports: No Symptoms GI/Abdominal: Reports: Abdominal Pain (Severe sudden onset of left lower mid abdominal pain with nausea and vomiting an hour before arrival in the ED.) : Reports: Frequency (Sincerely feeling of need to void.). Denies: Hematuria Musculoskeletal: Reports: Back Pain (Occasional problems with low back pain.) Skin: Reports: No Symptoms Neurological: Reports: No Symptoms Psychiatric: Reports: No Symptoms Hematologic/Lymphatic: Reports: No Symptoms Immunologic: Reports: No Symptoms ED EXAM, GI/ABD - Physical Exam Exam: See Below Exam Limited By: No Limitations General Appearance: Alert, WD/WN, Severe Distress, Other (Patient is on his knees at the bedside with an emesis basin and is very diaphoretic.) Eyes: Bilateral: Normal Appearance Respiratory/Chest: No Respiratory Distress, Lungs Clear, Normal Breath Sounds, No Accessory Muscle Use Cardiovascular: Normal Peripheral Pulses, Regular Rate, Rhythm, No Edema, No Gallop, No Murmur, No Rub GI/Abdominal Exam: No Organomegaly, Pelvis Stable, Tender (Tenderness appreciated on deep palpation left mid lower abdomen.), Abnormal Bowel Sounds ( Bowel sounds are absent.), Other (Moderately obese as the patient is over 300 pounds.). No: Guarding, Rigid ( Guarding or rebound tenderness), Rebound Back Exam: Normal Inspection, Full Range of Motion. No: CVA Tenderness (L), CVA Tenderness (R) Extremities: Normal Inspection, Normal Range of Motion, Non-Tender, No Pedal Edema Neurological: Alert, Oriented, CN II-XII Intact, Normal Cognition Psychiatric: Other Skin Exam: Cool (Touch), Diaphoretic (He is in a good deal of pain at this time. ) Course - Vital Signs Last Recorded V/S: Last Vital Signs Temp 36.4 C 01/14/20 21:13 Pulse 63 01/14/20 21:13 Resp 16 01/14/20 21:13 BP 162/99 H 01/14/20 21:13 Pulse Ox 96 01/14/20 22:00 - Orders/Labs/Meds Orders: Active Orders 24 hr Category Date Time Status Oxygen Therapy, ED [RC] ASDIRECTED Care 01/14/20 22:00 Active Abdomen Pelvis wo Cont [CT] Stat Exams 01/14/20 21:31 Taken URINALYSIS W/MICROSCOPIC [UA W/MICROSCOPIC] [URIN] Stat Lab 01/14/20 21:31 Ordered Ketorolac [Toradol] Med 01/14/20 21:45 Active 30 mg IVPUSH ONETIME Sodium Chloride 0.9% [Normal Saline] 1,000 ml Med 01/14/20 21:30 Active IV ASDIRECTED Medication Orders Sodium Chloride (Normal Saline) 1,000 mls @ 150 mls/hr IV ASDIRECTED DILEEP Last Admin: 01/14/20 21:37 Dose: 150 mls/hr Ketorolac Tromethamine (Toradol) 30 mg IVPUSH ONETIME DILEEP Last Admin: 01/14/20 21:35 Dose: 30 mg Meds: Medications Generic Name Dose Route Start Last Admin Trade Name Edgar PRN Reason Stop Dose Admin Sodium Chloride 1,000 mls @ 150 mls/hr 01/14/20 21:30 01/14/20 21:37 Normal Saline IV 150 mls/hr ASDIRECTED DILEEP Administration Ketorolac Tromethamine 30 mg 01/14/20 21:45 01/14/20 21:35 Toradol IVPUSH 30 mg ONETIME DILEEP Administration Discontinued Medications Generic Name Dose Route Start Last Admin Trade Name Edgar PRN Reason Stop Dose Admin Hydromorphone HCl 1 mg 01/14/20 21:31 01/14/20 21:37 Dilaudid IVPUSH 01/14/20 21:32 1 mg ONETIME ONE Administration Hydromorphone HCl 1 mg 01/14/20 21:58 01/14/20 22:03 Dilaudid IVPUSH 01/14/20 21:59 1 mg ONETIME ONE Administration Hydromorphone HCl 0.5 mg 01/14/20 22:45 01/14/20 22:50 Dilaudid IVPUSH 01/14/20 22:46 0.5 mg ONETIME ONE Administration Metoclopramide HCl 10 mg 01/14/20 21:31 01/14/20 21:36 Reglan IVPUSH 01/14/20 21:32 10 mg ONETIME ONE Administration - Radiology Interpretation Free Text/Narrative:: 39-year-old male presents to the ED with acute onset of severe left mid lower abdominal pain associated with nausea and vomiting. Pain is constant with a colicky component suggestive of renal colic. He has had no pre-existing left costovertebral angle pain. He does have a constant feeling of need to void but note need to defecate. Clinically patient has an acute renal colic on the left side. Plan IV normal saline at 150 mils per hour. Given Reglan 10 mg IV. Given Toradol 30 mg IV and Dilaudid 1 mg IV for pain relief. Urinalysis of one becomes available. CT of the abdomen to be performed per renal protocol. - Re-Assessments/Exams Free Text/Narrative Re-Assessment/Exam: 01/14/20 21:58 patient is still having significant left-sided lower abdominal pain. He rates it as 6 out of 10 at present. Will repeat Dilaudid 1 mg IV so that he can hold still better for CT scan. 01/14/20 22:46 CT of the abdomen and pelvis was done per renal protocol. Cardec silhouette appears normal. Lung bases are normal. He does have a moderate hiatal hernia. Liver is homogeneous without any intraductal dilatation. Gallbladder is visualized and no calcified gallstones are evident. Pancreas appears normal. Common bile duct appears normal. Stomach is filled with food. Spleen appears normal. Bowel and retroperitoneal space appears normal. Bladder is empty. Patient does have dilatation of the left renal pelvis and a 3.3 mm stone in the distal left ureter approximately an inch above the UVJ. The right kidney is normal without any stones evident in either renal parenchyma. Still having mild pain or colicky component on the left side. Will repeat Dilaudid 0.5 mg IV. He'll be discharged with a urinary cystoscopy. Percocet 5/325 mg tabs one or 2 every 4-6 hours needed for pain relief with Zofran 4 mg sublingually every 4 hours. For nausea or vomiting. Advised stone is likely to pass within the next 48 hours but sometimes can take up to 2 weeks to pass. Note will be given to excuse him from work tomorrow. Departure - Departure Time of Disposition: 22:48 Disposition: Home, Self-Care 01 Condition: Fair Clinical Impression: Renal colic on left side, Kidney stone on left side - Discharge Information *PRESCRIPTION DRUG MONITORING PROGRAM REVIEWED*: Not Applicable *COPY OF PRESCRIPTION DRUG MONITORING REPORT IN PATIENT STACY: Not Applicable Prescriptions: Ondansetron [Zofran] 4 mg BUCCAL Q6H PRN #5 tab PRN Reason: nausea or vomiting oxyCODONE HCl/Acetaminophen [Percocet 5-325 mg Tablet] 1 - 2 each PO Q4H PRN # 18 tablet PRN Reason: pain relief. Instructions: Renal Colic, [id number] Referrals: PCP,None [Primary Care Provider] - Forms: ED Department Discharge, ED Return to Work/School Form Additional Instructions: Evaluation in the emergency room today in regards to acute onset of severe left lower quadrant abdominal pain with associated nausea and vomiting and feeling of need move your bowels and of needing to pass her urine. He is overall signs and symptoms of kidney stone. You have not had any kidney stones in the past. CT scan of the abdomen and pelvis confirmed a 3.3 mm stone in the distal aspect of the left ureter. It has body image to go before will enter the urinary bladder which is the narrowest part of the ureter. This type of stone were almost always pass on its own usually within the next 48 hours but it can sometimes take couple weeks. When the stone stops moving the pain goes away until starts to move again. To home with medication for Percocet 5/325 mg tabs suggest taking 2 and you may need 3 tablets every 4 hours as necessary for pain relief due to your weight. 4 mg under the tongue every 4 hours as necessary for relief of any nausea vomiting. Suggest straining her urine once the pain reoccurs to see if he will passed her stone. Once the stone enters the bladder there will be no further pain. At present on CT scan you have no other stones in your kidneys to be problematic in the next 5-10 years. That is to be a normal calcium added diet such as Rolaids Tums or calcium supplements. You need to return to the ED if you develop nausea vomiting, fever or chills. Pain is not controlled with treatment plan. Sepsis Event Note - Evaluation Sepsis Screening Result: No Definite Risk - Focused Exam Vital Signs: Vital Signs Temp Pulse Resp BP Pulse Ox Pulse Ox 01/14/20 22:00 96 01/14/20 21:13 36.4 C 63 16 162/99 H 95 Date Exam was Performed: 01/14/20 Time Exam was Performed: 23:11 - My Orders Last 24 Hours: My Active Orders 01/14/20 21:30 Sodium Chloride 0.9% [Normal Saline] 1,000 ml IV ASDIRECTED 01/14/20 21:31 Abdomen Pelvis wo Cont [CT] Stat URINALYSIS W/MICROSCOPIC [UA W/MICROSCOPIC] [URIN] Stat 01/14/20 21:45 Ketorolac [Toradol] 30 mg IVPUSH ONETIME 01/14/20 22:00 Oxygen Therapy, ED [RC] ASDIRECTED - Assessment/Plan Last 24 Hours: My Active Orders 01/14/20 21:30 Sodium Chloride 0.9% [Normal Saline] 1,000 ml IV ASDIRECTED 01/14/20 21:31 Abdomen Pelvis wo Cont [CT] Stat URINALYSIS W/MICROSCOPIC [UA W/MICROSCOPIC] [URIN] Stat 01/14/20 21:45 Ketorolac [Toradol] 30 mg IVPUSH ONETIME 01/14/20 22:00 Oxygen Therapy, ED [RC] ASDIRECTED
[2020-01-14] MEDS ORDERED: Ketorolac 30 MG/ML SDV IVPUSH SCH (21:45)
[2020-01-14] MEDS ORDERED: HYDROmorphone 0.5 MG/0.5 ML Syringe IVPUSH ONE (22:45)
--- NOTE | 2020-01-15 07:52 | CT ---
CT abdomen and pelvis Technique: Multiple axial sections were obtained from above the dome of the diaphragm inferiorly through the pubic symphysis. Intravenous and oral contrast not utilized. Study performed as a ureteral stone protocol. Comparison: No prior abdominal imaging is available. Left ureter is mildly prominent in size. Mild inflammatory change is seen around portions of the left ureter. These findings are caused by 3.6 mm obstructing stone within the distal left ureter close to the UVJ. No additional ureteral calculi are seen. No renal calculi are appreciated. Other findings: Visualized lung bases show nothing acute. No focal abnormality is seen within the liver. Liver shows diffuse fatty infiltration. Spleen appears within normal limits. Adrenal glands show no nodule. Pancreas is within normal limits. Gallbladder contains no calcified gallstones. Aorta shows no aneurysm. No retroperitoneal adenopathy or mesenteric abnormalities are seen. No pelvic mass or adenopathy is seen. Appendix is seen and is normal in size. Small fat-containing bilateral inguinal hernias are noted. No free fluid is seen. Bone window settings were reviewed which appear within normal limits for the patient's age. Impression: 1. 3.6 mm obstructing stone within the distal left ureter causing proximal mild hydronephrosis. 2. No renal calculi are seen. 3. Fatty infiltration noted within the bladder. Diagnostic code #3 This report was dictated in [place] Standard Time I agree with preliminary report from [facility], finalized on 01/14/20, 11:42 PM Central Time
== END 2020-01-14 23:26 | disposition home or self-care (01) ==
LOC: JD.ED 21:05
DX: N13.2 Hydronephrosis with renal and ureteral calculous obstruction (principal)
CPT/HCPCS: 74176; 81001; 96361; 96374; 96375; 96376; 99284; J1170; J1885; J2765; J7030